=== PATIENT | female | born 1945 | race Two or more races ===

== ENCOUNTER 2019-09-15 07:15 | Inpatient (IN) | payer OTHER ==
[~2019-09-15] VITALS: Ht 160 cm; Wt 68.0 kg
[2019-09-15] MEDS ORDERED: COZAAR50 MG PO (12:05)
[2019-09-15] MEDS ORDERED: NORVASC10 MG PO (12:05)
[2019-09-20] MEDS ORDERED: ULTRACET PO (09:53)
[2019-09-20] MEDS ORDERED: POLY119PG PO (09:54)
[2019-09-20] MEDS ORDERED: PROTONIX40 MG PO (09:54)
== END 2019-09-20 11:05 | disposition home or self-care (01) | DRG 330 ==
LOC: SURH 07:15 → O/R 09-18 07:28 → SURH 09-18 07:28 → EDSEX 09-20 11:05 → SURH 09-20 11:05
PROVIDERS: ADMIT Surgery
PROC: 07BC4ZX Excision of Pelvis Lymphatic, Percutaneous Endoscopic Approach, Diagnostic (ICD-10-PCS; 2019-09-18)
PROC: 0DNW4ZZ Release Peritoneum, Percutaneous Endoscopic Approach (ICD-10-PCS; 2019-09-18)
PROC: 0DQB4ZZ Repair Ileum, Percutaneous Endoscopic Approach (ICD-10-PCS; 2019-09-18)
PROC: 4A19X1Z Monitoring of Respiratory Capacity, External Approach (ICD-10-PCS; 2019-09-18)
PROC: 0DTF4ZZ Resection of Right Large Intestine, Percutaneous Endoscopic Approach (ICD-10-PCS; principal; 2019-09-18 07:15)
DX: C18.3 Malignant neoplasm of hepatic flexure (principal); K91.71 Accidental puncture and laceration of a digestive system organ or structure during a digestive system procedure; M06.80 Other specified rheumatoid arthritis, unspecified site; I13.10 Hypertensive heart and chronic kidney disease without heart failure, with stage 1 through stage 4 chronic kidney disease, or unspecified chronic kidney disease; N18.2 Chronic kidney disease, stage 2 (mild); K66.0 Peritoneal adhesions (postprocedural) (postinfection); Y65.8 Other specified misadventures during surgical and medical care

== ENCOUNTER 2019-09-24 17:56 | Inpatient (IN) | payer OTHER ==
[~2019-09-24] VITALS: Ht 157.5 cm; Wt 68.0 kg
[~2019-09-24 17:56] MED LIST: COZAAR50 MG PO; NORVASC10 MG PO; POLY119PG PO; PROTONIX40 MG PO; ULTRACET PO
--- NOTE | 2019-09-24 18:11 | NUR ---
PTE ALERTA Y ORIENTADA X 3 ESFERAS QUIEN REFIERE DESDE EL MEDIO CURT CON VOMITOS Y NO EVACUA DESDE PEGGY,NO PRESENTA ABDOMEN DISTENDIDO,PTE POST OPERADA POR DR BRADFORD EL CURT .
--- NOTE | 2019-09-25 02:12 | NUR ---
PACIENTE ALERTA Y ORIENTADA X3. EN CAMA CON BARANDAS ELEVADAS Y INTERCOM ACCESIBLE. MISS. BIRRIEL ORIENTO A PACIENTE SOBRE PROCEDIMIENTO DE INSERTAR TUBO NASOGASTRICO Y REFIRIO ENTENDER. INSERTA TUBO NASOGASTRICO EN RADHA DERECHO, SE VERIFICO PATENTICIDAD DEL MISMO AL AUSCULTAR Y SE ESCUCHA EN SITIO. NO ELIMINO LIQUIDO AL MOMENTO. SE MANTIENE BAJO OSBERVACION POR CAMBIOS SIGNIFICATIVOS. PACIENTE CON IV FLUID PATENTE Y ENDY DE EDEMA Y ERITEMA.
--- NOTE | 2019-09-25 02:20 | NUR ---
PACIENTE ALERTA Y ORIENTADA X3. AL IR A REALIZAR UN DOBLE COTEJO DE LA UBICACION DEL TUBO NASOGASTRICO CON MISS. CRUZ SE ENCUENTRA A LA PACIENTE ENTRANDOSE MAS EL TUBO NASOGASTRICO Y AL ACOMPANANTE CON EL TAPE EN LA MANO. SE PREGUNTA QUE PASO Y PACIENTE REFIERE QUE SE OBINNA EL TAPE Y SE ESTABA ENTRANDO MAS EL TUBO NASOGASTRICO PARA SHARIFA SI SALIA EL LIQUIDO DEL ESTOMAGO. SE ORIENTA A PACIENTE QUE AL INSERTAR EL TUBO NASOGASTRICO MISS. BIRRIEL SE VERIFICO PATENTICIDAD DEL MISMO AL AUSCULTAR. SE ORIENTA A PACIENTE QUE NO DEBE RETIRARSE EL TUBO NASOGASTRICO O INSERTARSE MAS EL MISMO. PACIENTE REFIERE ENTENDER. SE VERIFICA QUE EL TUBO NASOGASTRICO EN RADHA DERECHO KAYLAN PATENTE AL AUSCULTAR. SE CONECTA A LA SUCCION INTERMITENTE BAJA Y ELIMINA MENOS DE 5ML DE LIQUIDO AMARILLO. SE MANTIENE BAJO OBSERVACION POR CAMBIOS SIGNIFICATIVOS.
--- NOTE | 2019-09-25 08:06 | NUR ---
SE RECIBE PT ALERTA Y ORIENTADA EN TIEMPO LUGAR Y PERSONA, CON NGT CONECTADO A LIS. PT RECIBIENDO R/L BAJANDO A 150ML/HR, IVFS PATENTE, AREA ENDY DE EDEMA Y ERITEMA. PT EN CAMA CON BARANDAS ELEVADAS Y TIMBRE ACCESIBLE. PENDIENTE DE SER EVALUADA POR DR BRADFORD.
== END 2019-09-29 14:16 | disposition home or self-care (01) | DRG 389 ==
LOC: ER 17:56 → EDSEX 18:24 → ER 18:24 → SURG 09-25 08:04 → SEC-K 09-25 08:04 → SURG 09-25 09:28
PROVIDERS: ADMIT Surgery
PROC: 02HV33Z Insertion of Infusion Device into Superior Vena Cava, Percutaneous Approach (ICD-10-PCS; 2019-09-25)
PROC: 3E0436Z Introduction of Nutritional Substance into Central Vein, Percutaneous Approach (ICD-10-PCS; 2019-09-25)
PROC: 0DH67UZ Insertion of Feeding Device into Stomach, Via Natural or Artificial Opening (ICD-10-PCS; 2019-09-26)
PROC: 3E0G76Z Introduction of Nutritional Substance into Upper GI, Via Natural or Artificial Opening (ICD-10-PCS; 2019-09-26)
PROC: BW21Y0Z Computerized Tomography (CT Scan) of Abdomen and Pelvis using Other Contrast, Unenhanced and Enhanced (ICD-10-PCS; principal; 2019-09-27)
DX: K56.690 Other partial intestinal obstruction (principal); R18.8 Other ascites; C18.2 Malignant neoplasm of ascending colon; I11.9 Hypertensive heart disease without heart failure; I87.2 Venous insufficiency (chronic) (peripheral)